=== PATIENT | female | born 1955 | race Caucasian/White ===

== ENCOUNTER 2024-11-02 23:23 | Emergency (ER) | payer OTHER, MEDICAID ==
[~2024-11-02] VITALS: Ht 165.1 cm; Wt 63.5 kg
[2024-11-02 23:32] VITALS: TEMP 36.9; O2SAT 100
[2024-11-03] MEDS ORDERED: LIDO-53 TP (01:17)
[2024-11-03] MEDS ORDERED: NAPR-1176 MT (01:17)
[2024-11-03 01:45] VITALS: BP 142/82; PULSE 79; RESP 16
[2024-11-03] MEDS: LIDOCAINE 5% PATCH TOP SCH (01:45)
[2024-11-03] MEDS: MORPHINE SULFATE 4 MG/ML INJ (FOR IV/IM USE) IM ONE (01:45)
== END 2024-11-03 04:06 | disposition home or self-care (01) ==
LOC: ER 23:43
DX: G89.29 Other chronic pain (principal); M54.50 Low back pain, unspecified; I10 Essential (primary) hypertension; Z79.1 Long term (current) use of non-steroidal anti-inflammatories (NSAID)
CPT/HCPCS: 99283; 96372; J2270